=== PATIENT | female | born 1980 ===

== ENCOUNTER 2017-09-24 11:03 | Day surgery (SDC) | payer OTHER ==
[2017-09-24 11:36] VITALS: BMI 39.3
[2017-09-24 13:43] LABS: HEMOGLOBIN 8.8 g/dL (12.0-16.0); MEAN CELL VOLUME 64.5 fl (81.0-99.0); MEAN CORPUSCULAR HEMOGLOBIN 19.6 pg (27.0-31.0); MEAN CORPUSCULAR HGB CONC 30.4 g/dL (33.0-37.0); RBC 4.5 Mil/uL (3.80-5.20); RED CELL DISTRIBUTION WIDTH 19.9 % (11.5-14.5)
[2017-09-24] MEDS ORDERED: Lactated Ringer's 1,000 ML IV ONE (13:50)
[2017-09-24] MEDS ORDERED: Iohexol 300 100 ML IJ ONE (14:06)
[2017-09-24] MEDS ORDERED: HYDROmorphone 0.5 mg/0.5 ml ISec IVP PRN (14:58)
[2017-09-24] MEDS ORDERED: Lactated Ringer's 1,000 ML IV SCH (15:30)
[2017-09-24] MEDS ORDERED: Oxycodone/Acetaminophen 5/325 mg Tab PO PRN (15:30)
[2017-09-24 15:52] VITALS: RESP 18
[2017-09-24 18:34] VITALS: BP 108/78; PULSE 62; TEMP 97.6; O2SAT 99
--- NOTE | 2017-09-26 07:50 | OP ---
PROCEDURE DATE: 09/24/2017 PREOPERATIVE DIAGNOSIS: The patient is a 37-year-old female with an endometrial polyp and polypoid endometrium. POSTOPERATIVE DIAGNOSIS: Endometrial polyp and polypoid endometrium. PROCEDURE: 1. Hysterosalpingogram. 2. Hysteroscopic polypectomy. 3. Dilatation and curettage. 4. Procedure performed with MyoSure LITE. SURGEON: Erin Lopez MD ALARM INVESTIGATOR: None. TYPE OF ANESTHESIA: General with LMA. ANESTHESIA ADMINISTERED BY: Derrell Ellis MD IV FLUID INTAKE: 500 mL. HYSTEROSCOPIC FLUID: Normal saline. DEFICITS: 180 mL. BLOOD LOSS: Less than 10 mL. FINDINGS: 1. A 1.5 cm endometrial polyp attached to the posterior uterine wall. 2. Anteverted uterus. 3. Normal tubal ostia bilaterally. 4. Diffuse polypoid endometrium throughout uterine cavity. 5. HSG finding with normal uterine contour bilaterally patent fallopian tubes with normal caliber. SPECIMENS: Endometrial polyp and endometrial curetting. DESCRIPTION OF PROCEDURE: After proper consent was obtained and all questions were answered, the patient was transferred to operating room #4 at the [facility]. Adequate general anesthesia with LMA was administered and the patient was placed into the modified dorsal lithotomy position using Sudheer stirrups. Correct positioning is performed to prevent nerve injury and on exam under anesthesia was performed with findings as noted above. Attention was directed to the perineum. A sterile speculum was placed into the vaginal wall and the cervix was visualized. The cervix was cleaned with Betadine on sponge sticks and a hysterosalpingogram Cook catheter was placed through the uterine cervix. Omnipaque 300 contrast dye was infused into the uterine cavity and through the fallopian tubes, the fluoroscopic visualization of the uterus is performed by the kennel technician. The uterus is noted to have a normal caliber and both fallopian tubes are noted to be patent bilaterally and normal caliber tubes were noted. The Cook HSG catheter was then removed from the vaginal wall does was the bivalve speculum and a sterile prep and drape was performed. Attention directed to the perineum and a weighted speculum was then placed into the posterior fornix of the vagina and anteriorly a right angle retractor was placed into the anterior fornix of the vagina. The cervix was again visualized and this time grasped with a single-tooth tenaculum with the anterior lip of the cervix. The cervix was then serially dilated with Miguel dilator to accommodate the MyoSure operative hysteroscope. The hysteroscope was prepared with normal saline and then advanced under direct visualization into the uterine cavity. The cavity was visualized with findings as noted above. The tubal ostia were best visualized and noted to be normal at 1.5 cm pedunculated endometrial polyp was noted to be attached to the posterior uterine wall. The remaining endometrium throughout the cavity was noted to be diffusely polypoid. The MyoSure LITE device was introduced into the uterine cavity through the MyoSure hysteroscope and used to sequentially resect the uterine polyp as well as the polypoid endometrium. Fluid deficit after the procedure was 180 mL. The MyoSure camera was removed from the uterine cavity and as was tenaculum. Hemostasis was achieved with pressure. All instruments were removed from the vaginal wall and the patient was transferred to the recovery room in good condition. She will follow up with Dr. Erin Lopez in 2 weeks' time. Erin Lopez MD
== END 2017-09-24 19:25 | disposition home or self-care (01) ==
LOC: H.OPSURG 11:03
PROVIDERS: ATTEND Obstetrics & Gynecology Reproductive Endocrinology
DX: N84.0 Polyp of corpus uteri (principal)
CPT/HCPCS: 36415; 58558; 85027; 86850; 86900; 88305; J7030; J7120; Q9967